=== PATIENT | female | born 1975 | race Caucasian/White ===

== ENCOUNTER 2022-07-31 07:22 | Inpatient (IN) | payer BC, SELFPAY ==
[2022-07-31] VITALS (56 sets, daily range): BP systolic 150–163; BP diastolic 78–88; PULSE 66–103; RESP 13–30; TEMP 36.9; O2SAT 92–97; BMI 37.8
--- NOTE | 2022-07-31 06:53 | P.HP_ITS ---
Providers/Chief Complaint Admitting Physician: Dalton Joyce Chief Complaint: NSTEMI History of Present Illness 46-year-old lady with history of smoking, HTN suboptimally controlled, blood pressure serially running in the 180s, history of CVA in 2018, overweight, with family history of coronary disease was transferred from [facility] where she was assessed after presenting with upper central chest discomfort, mild but persistent, accompanied by nausea and had an episode of vomiting, then pain started radiating to the jaw, left shoulder which made her concerned and seek evaluation. On presentation at [facility] very hypertensive, blood pressure 258/112. Initial troponin 0.589 (at their facility is 0.29), second troponin pending. Chest x-ray unremarkable. BNP 217. Heart rates reported in the 90s. Respiratory rate 18. Saturating 92% on room air. She received nitroglycerin paste, aspirin x4, started on heparin drip. Blood pressure subsequently decreased to 191/92, then now most recent 140/79. Cholesterol panel reported WNL. Currently she is chest pain-free. She has been taking ibuprofen due to L hip pain after she states she had recently dislocated it. Review of Systems Const: Denies: fever(s), chills, body aches or malaise Eyes: Denies: change in vision, eye discomfort or eye redness ENMT: Denies: throat pain, oral sores or ear or mastoid pain Card: Reports: chest pain; Denies: edema, pre-syncope or dyspnea on exertion Resp: Denies: dyspnea, productive cough, change in phlegm color or hemoptysis GI: Reports: nausea and vomiting; Denies: abdominal pain, diarrhea, constipation, hematochezia or melena : Denies: flank pain, urinary frequency or hematuria Musc: Reports: joint pain (L hip); Denies: back pain, joint swelling or joint redness Skin/Breast: Denies: rash or new lesions Neuro: Denies: headache(s), numbness in extremities, weakness in extremities, dizziness, confusion or seizure-like activity Endo: Denies: polyuria or polydipsia Lito/Lymph: Denies: easy bleeding or tender lymph nodes All/Imm: Denies: urticaria or tongue swelling Medications/Allergies Allergies Allergy/AdvReac Type Severity Reaction Status Date / Time Latex, Natural Rubber Allergy Unknown Unknown Unverified 07/31/22 07:03 NSAIDS (Non-Steroidal Allergy Unknown Unknown Unverified 07/31/22 07:03 Anti-Inflamma vitamin c Allergy Severe anaphalaxis Uncoded 07/31/22 07:11 PFSH Acute PFSH: Medical History (Updated 07/31/22 @ 07:18 by Dalton Joyce MD) CVA (cerebral vascular accident) Heat stroke Surgical History (Updated 07/31/22 @ 07:18 by Dalton Joyce MD) H/O knee surgery History of removal of ovarian cyst Family History (Updated 07/31/22 @ 07:05 by Dalton Joyce MD) Father CAD (coronary artery disease) Social History (Updated 07/31/22 @ 07:13 by Dalton Joyce MD) Smoking and tobacco status: current every day smoker cigarettes Packs smoked per day: 0.5 Alcohol intake: current Alcohol intake frequency: holidays/special occasions only Substance/Drug Use: never Marital status: Current occupational status: employed Physical Exam Const: COMMON NORMALS: patient oriented x3 and alert GENERAL APPEARANCE: cooperative NUTRITIONAL APPEARANCE: overweight ORIENTATION/CONSCIOUSNESS: Yes awake HENMT: COMMON NORMALS: oropharynx normal Neck/C-Spine: COMMON NORMALS: no JVD Resp: COMMON NORMALS: normal respiratory effort and clear to auscultation bilaterally AUSCULTATION: clear to auscultation bilaterally Cardio: COMMON NORMALS: no JVD, regular rhythm, S1 normal heart sound present, S2 normal heart sound present and No murmurs present (Cardio) RHYTHM: regular rhythm HEART SOUNDS: S1 normal heart sound present and S2 normal heart sound present GI: COMMON NORMALS: Normal to inspection, nondistended, normoactive bowel sounds present, Soft to palpation and non-tender PALPATION: Yes Soft to palpation Extremity: COMMON NORMALS: no joint enlargement and no pedal edema Neuro: COMMON NORMALS: patient oriented x3 and moves all extremities SENSORIUM/ORIENTATION: Yes alert Skin: COMMON NORMALS: no rashes or lesions noted GENERAL SKIN EXAM: no rashes or lesions noted A&P Assessment and plan (1) NSTEMI (non-ST elevated myocardial infarction): Concern for NSTEMI with chest pain, troponin abnormality, risk factors of CAD with smoking, hypertension, obesity, family history of CAD. Elevated heart score. Received aspirin, continue. Continue heparin drip. Beta-abdullahi. Statin. Assess TTE. Monitor on telemetry. Cardiology consultation. Lipid profile reported WNL. Avoid NSAIDs. Check D-dimer. (2) Hypertensive urgency: On arrival to [facility] blood pressure very elevated, 258/112. Responded well to nitroglycerin blood pressure came down as low as 140/79. Start beta-abdullahi as above. Cardiac diet. Monitor blood pressures. (3) Smoking addiction: Discussed smoking cessation with her for 4 minutes. She realizes she needs to quit. She is smoking less than half pack per day. Will provide nicotine patch, lozenges as needed for cravings. (4) Nausea and vomiting: Had an episode of nausea and vomiting, concern for possible relation to NSTEMI. However, she has also been taking ibuprofen due to she states recent dislocation of her left hip. Possible gastritis, PUD. Start PPI. With smoking history in case of persistent dyspepsia consider referral for assessment by EGD once she is out of acute illness. Plan History of CVA, residual numbness in fingertips of the right hand. Attestations Medical Necessity Statement*: Admission of over 2 midnights anticipated versus management of NSTEMI, optimization of blood pressure after hypertensive urgency. 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
--- NOTE | 2022-07-31 07:04 | USCV_ITS ---
Cara Pandey Age: 46 Gender: F : 1975 Exam Date: 07/31/2022 07:38 Ordering Phys: Dalton Joyce MD Technologist: JESSICA Exam Location: [facility] [place] Indication: NSTEMI BP: 150 / 78 HR: 99 Rhythm: Sinus Technical Quality: Adequate MEASUREMENTS (Male / Female) Normal Values 2D ECHO LVOT Diameter 2.0 cm LV Ejection Fraction MOD 2C 65.3 % LV Ejection Fraction 2C AL 65.1 % LA Diameter 3.7 cm LA Width 2.4 cm LA Height 4.8 cm RA Width 3.1 cm RA Height 4.2 cm Aorta at Sinotubular Diameter 1.9 cm M-MODE Aortic Annulus Diameter 2.7 cm LA Ao Ratio MM 1.3 MV E Point Septal Separation 0.4 cm DOPPLER AV Peak Velocity 190.3 cm/s LVOT Peak Velocity 134.0 cm/s AV Area Cont Eq vti 3.0 cm squared AV Area Cont Eq pk 2.3 cm squared MV Peak Velocity 134.0 cm/s MV Area PHT 2.7 cm squared Mitral E to A Ratio 0.9 MV E' Velocity 51.5 cm/s Mitral E to MV E' Ratio 7.1 Mitral E to LV E' Lateral Ratio 6.7 Mitral E to LV E' Septal Ratio 7.6 TR Peak Velocity 190.6 cm/s TR Peak Gradient 14.5 mmHg TR Mean Velocity 128.6 cm/s TR Mean Gradient 8.2 mmHg TR Velocity Time Integral 35.4 cm TV Peak E Velocity 71.0 cm/s Right Atrial Pressure 8.0 mmHg Pulmonary Artery Systolic Pressu 22.5 mmHg PV Peak Velocity 139.0 cm/s RV Acceleration Time 0.1 s RV Ejection Time 0.3 s RV AcT/ET 0.5 FINDINGS Left Ventricle Normal left ventricular size and systolic function, EF 66 %. No regional wall motion abnormalities. Mild left ventricular hypertrophy. Right Ventricle The right ventricle is normal in size and function. Right Atrium The right atrium is normal in size. Left Atrium The left atrium is normal in size. Mitral Valve Mild mitral annular calcification. Aortic Valve No gross abnormalities noted Tricuspid Valve No gross abnormalities noted.trace tricuspid valve regurgitation. Pulmonic Valve Pulmonic valve not well visualized. Pericardium No pericardial effusion. Aorta Normal aortic annulus size. IVC Inferior vena cava not visualized. CONCLUSIONS Normal left ventricular size and systolic function, EF 66 %. No regional wall motion abnormalities. Mild left ventricular hypertrophy. (Echo contrast - Optison was used to delineate the endocardium and to estimate the LV ejection fraction) Mild mitral annular calcification. Trace tricuspid valve regurgitation. Estimated pulmonary artery peak systolic pressure 22 mmHg There is no pericardial effusion. There are no intracardiac masses. No similar previous studies are available for comparison Dr Monalisa Abdul MD [facility] (Electronically Signed) Final Date: 31 July 2022 11:39 S
[2022-07-31 07:46] LABS: Partial Thromboplastin Time 44.1 SECONDS (23.9-36.7)
[2022-07-31 07:48] LABS: D Dimer 0.45 ug/mIFEU (0-0.59)
[2022-07-31] MEDS: perflutren protein-a microsphr 0.22 mg/mL SDV 3 mL IV (08:13)
[2022-07-31 08:19] LABS: Troponin T (5th) Once 211 ng/L (0-10)
[2022-07-31] MEDS: pantoprazole DR 40 mg Tablet PO (08:24)
[2022-07-31] MEDS: aspirin 325 mg Tablet PO (08:24)
[2022-07-31] MEDS: metoprolol tartrate 25 mg Tablet PO ×2 (08:24→20:58)
[2022-07-31 10:03] LABS: Troponin T (5th) Once 261 ng/L (0-10)
--- NOTE | 2022-07-31 10:07 | ECG_ITS ---
[facility] Test Date: 2022-07-31 Pat Name: Cara Pandey Department: Room: 103 Gender: Female Intelligence Manager: : 1975 Requested By: Adarsh Tracy Order Number: [id number] Lacho MD: Monalisa Abdul M.D. Measurements Intervals Sasser Rate: 75 P: 61 WY: 166 QRS: 23 QRSD: 90 T: 66 QT: 386 QTc: 432 Interpretive Statements SINUS RHYTHM No previous ECG available for comparison Electronically Signed On 08-01-2022 15:23:20 UNIONMELT OPERATOR by Monalisa Abdul M.D. [id number]
--- NOTE | 2022-07-31 10:34 | W.PM.EVENTAC ---
Event Note Event Note: Saw patient briefly, reviewed history and physical. Troponin significantly elevated. Awaiting EKG. Patient reports no chest discomfort whatsoever. Agree with plan as outlined by Dr. Joyce.
--- NOTE | 2022-07-31 10:43 | PM.CONSULT ---
Providers/Reason For Consult Consulting Physician/Specialty*: Beatrice Abdul MD/cardiology Reason for Consult*: Patient with chest pain and elevated troponin T Requesting Physician: Dr. Joyce/Nidhi Attending Physician: Adarsh Terrell MD History of Present Illness History of Present Illness Cara Pandey is a 46 year old female, transferred to our facility from [facility] where she presented with accelerated hypertension and chest pain with nausea and vomiting This patient apparently has been in her baseline state of health up until 5:00 yesterday evening when she started having gas-like pain in the mid substernal regions. Occasionally it will study to the neck. She had a several of these episodes throughout the night. Because of this, she was finding difficulty going to bed. Around 1:00 in the morning, she started vomiting. She had 1 bout of vomiting. Following which, she had some relief for a short period. Few minutes later, she started having the gas-like pain and belching. For these reasons, she was seen at the [facility]. Her gas pains gradually subsided. She had some severe headache at that time. Her troponin levels came back elevated. For that reason, she was transferred to our hospital. The intensity of her pain very mild to moderate. Even though she had gas pains before she she almost always had a pain in the abdomen. According to her, this is the first time that she is having pain in the chest . She has no previous history for coronary disease, myocardial infarction or congestive heart failure. She was diagnosed with CVA in 2018. She was told to have a heat stroke which later on evolved into a complete stroke? She was found to have elevated blood pressure at that time. She may try taking the blood pressure medications for 3 months or so. She stopped taking the medicine since she could not afford to see a doctor. She apparently has not been taking the medication since then. She has no history for any diabetes or dyslipidemia. No history for kidney disease, liver disease or bleeding disorders. Her father had a myocardial infarction in his 30s. He later on of cancer. Details about her siblings are not known. Denies any smoking abuse, alcohol abuse or any other substance abuse. Review of Systems Narrative: CONSTITUTIONAL: No fever or chills. EYES: No blurring of vision or other visual disturbances lately. ENT: No hoarseness of voice, auditory disturbances or sore throat. CARDIOVASCULAR: As mentioned above. RESPIRATORY: No significant cough. GASTROINTESTINAL: No hematemesis or melena. GENITOURINARY: Had a cyst removal from the ovary INTEGUMENTARY: No skin rashes or history of skin cancer. NEURO: No transient ischemic attacks or amaurosis. PSYCHIATRIC: No history of psychosis or major depression. HEMATOLOGIC: No bleeding disorders or significant anemia. ENDOCRINE: No history of polyuria or polydipsia. MUSCULOSKELETAL: Had surgery to the left knee ALLERGY/IMMUNOLOGY: As mentioned above. Medications/Allergies Home Medications Medication Instructions Recorded Confirmed Last Taken Type aspirin 81 mg tablet,delayed 81 mg PO DAILY 07/31/22 07/31/22 Unknown History release ibuprofen 200 mg tablet (Advil) 400 mg PO Q6H PRN Pain 07/31/22 07/31/22 Unknown History multivit-iron 18 mg-folic acid 400 1 tab PO DAILY 07/31/22 07/31/22 Unknown History mcg-calcium 500 mg-minerals tablet (Women's Daily Formula) Allergies Allergy/AdvReac Type Severity Reaction Status Date / Time Latex, Natural Rubber Allergy Unknown Unknown Verified 07/31/22 07:37 NSAIDS (Non-Steroidal Allergy Unknown Unknown Verified 07/31/22 07:37 Anti-Inflamma vitamin c Allergy Severe anaphalaxis Uncoded 07/31/22 07:11 Current Medications Generic Name Dose Route Start Last Admin Trade Name Freq PRN Reason Stop Dose Admin Aspirin 325 mg 07/31/22 09:00 07/31/22 08:24 Aspirin 325 Mg Tablet PO 325 mg DAILY SOHEILA Administration Metoprolol Tartrate 25 mg 07/31/22 09:00 07/31/22 08:24 Metoprolol Tartrate 25 Mg Tablet PO 25 mg BID@0900,2100 SOHEILA Administration Nicotine 1 patch 07/31/22 09:00 07/31/22 07:22 Nicotine 14 Mg Patch TRANSDERMA Not Given DAILY SOHEILA Pantoprazole Sodium 40 mg 07/31/22 07:05 07/31/22 08:[address] 40 Mg Tablet PO 40 mg DAILY SOHEILA Administration PFSH Acute PFSH: Medical History CVA (cerebral vascular accident) Heat stroke Surgical History H/O knee surgery History of removal of ovarian cyst Family History Father CAD (coronary artery disease) Social History Smoking and tobacco status: current every day smoker cigarettes Packs smoked per day: 0.5 Alcohol intake: current Alcohol intake frequency: holidays/special occasions only Substance/Drug Use: never Marital status: Current occupational status: employed Vitals/I&O/Wt Last Vital Signs Pulse 86 07/31/22 09:00 Resp 16 07/31/22 09:00 BP 150/78 07/31/22 09:00 Pulse Ox 95 07/31/22 09:00 O2 Del Method 07/31/22 06:54 Weight last 48 hrs Weight 256 lb 2 oz Physical Exam Narrative: GENERAL: The patient is alert and oriented times three. Not in any acute distress. Moderately obese HEENT: No significant pallor, icterus or lymphadenopathy.Oral cavity: There are no mucous membrane lesions. NECK: Trachea appears to be central. No masses noted. No JVD or thyromegaly appreciated. RESPIRATORY: Chest is symmetrical. No intercostals muscle retraction or any accessory muscle activation. There is no chest wall tenderness. Breath sounds are heard bilaterally. No rales or rhonchi heard. No evidence of any consolidation. BREASTS: Deferred. HEART: The heart sounds are normal. No S3 or S4. No significant murmurs. No pericardial rub ABDOMEN: No vessel pulsations or distention. No tenderness. No organomegaly appreciated. Bowel sounds are normally heard. : Deferred. RECTAL: Deferred. LYMPHATIC: No lymphadenopathy noted in the neck. EXTREMITIES: No edema or cyanosis. No clubbing. MUSCULOSKELETAL: No acute joint deformities or swelling SKIN: There are no significant rashes or ecchymosis NEUROPSYCHIATRIC: The patient is alert and oriented x3. Appears to be in a good mood. No tremors or rigidity noted. Data : 08/01/22 04:34 08/01/22 04:34 Other Labs: Laboratory Last Values APTT 44.1 SECONDS (23.9-36.7) H 07/31/22 07:08 D-Dimer 0.45 ug/mIFEU (0-0.59) 07/31/22 07:08 Troponin T Gen 5 ng/L 261 ng/L (0-10) H* 07/31/22 09:30 Micro: Laboratory Last Values APTT 44.1 SECONDS (23.9-36.7) H 07/31/22 07:08 D-Dimer 0.45 ug/mIFEU (0-0.59) 07/31/22 07:08 Sodium 138 mmol/L (136-145) 07/31/22 09:30 Potassium 4.1 mmol/L (3.5-5.1) 07/31/22 09:30 Chloride 104 mmol/L (98-107) 07/31/22 09:30 Carbon Dioxide 23 mmol/L (22-29) 07/31/22 09:30 Anion Gap 15.1 (5-19) 07/31/22 09:30 BUN 8 mg/dL (6-20) 07/31/22 09:30 Creatinine 0.7 mg/dL (0.5-0.9) 07/31/22 09:30 GFR Calculation 90.1 mL/min (90-130) 07/31/22 09:30 Glucose 96 mg/dL (65-115) 07/31/22 09:30 Calculated Osmolality 284 mOsm/kg (285-295) L 07/31/22 09:30 Calcium 9.0 mg/dL (8.5-10.5) 07/31/22 09:30 Troponin T Gen 5 ng/L 261 ng/L (0-10) H* 07/31/22 09:30 Echo: My impression: Normal left ventricular size and systolic function, EF 66 %. No ?regional wall motion abnormalities. ?Mild left ventricular hypertrophy.? (Echo contrast - Optison was ?used to delineate the endocardium and to estimate the? LV ?ejection fraction) ?Mild mitral annular calcification. ?Trace tricuspid valve regurgitation. ?Estimated pulmonary artery peak systolic pressure 22 mmHg ?There is no pericardial effusion. ?There are no intracardiac masses. ?No similar previous studies are available for comparison EKG 1: Non Destructive Testing Scientist Interpretation: EKG showed a normal sinus rhythm with some nonspecific T wave changes in the high lateral leads. Otherwise unremarkable. A&P Assessment and plan (1) Chest pain: Patient chest pain is atypical. However the possibility of underlying coronary ischemia causing the syndrome is a strong consideration especially in view of the elevated troponin T and strong family history for premature atherosclerotic heart disease. At this point, her clinical features are consistent with a non-ST elevation myocardial infarction. She may be treated with subcu Lovenox, beta-abdullahi, aspirin and Plavix. Her EKG and echocardiogram are unremarkable. (2) Hypertensive urgency: Currently the blood pressures are stage II. Apparently the patient was extremely nervous and had a panic attack at the [facility]. That might be the reason for her markedly elevated blood pressure at that time. Her antihypertensive medications need to be optimized. (3) Nausea and vomiting: Most likely from the myocardial ischemia. Patient has no recurrence. (4) Dyslipidemia: May be started on Lipitor 40 mg p.o. 1 hour daily. (5) FH: premature coronary heart disease: Details of the other family members are not known. Father had myocardial infarction in his 30s. Plan We will optimize the antihypertensive medications. Based on the clinical progress, further recommendations will be made. We may go ahead and do a cardiac catheterization, to further evaluate her coronary status and decide on further management, possibly tomorrow. Thank you for the opportunity to eval this patient make these recommendations Consult Attestations Medical Necessity Statement: Patient requires continued hospital stay for close monitoring and further management Coding Level of Care Code Acute Senior Sales Operations Manager for Chg Fwd Diagnoses Chest pain R07.9 Hypertensive urgency I16.0 Nausea and vomiting R11.2 Dyslipidemia E78.5 FH: premature coronary heart disease Z82.49
[2022-07-31 10:55] LABS: Anion Gap 15.1 (5-19); Blood Urea Nitrogen 8 mg/dL (6-20); Carbon Dioxide 23 mmol/L (22-29); Chloride 104 mmol/L (98-107); Glomerular Filtration Rate 90.1 mL/min (90-130); Glucose 96 mg/dL (65-115); Osmolality Calculated 284 mOsm/kg (285-295); Potassium 4.1 mmol/L (3.5-5.1); Sodium 138 mmol/L (136-145)
--- NOTE | 2022-07-31 11:25 | PC.NURSE ---
received from [facility] at 0655 via ambulance.pt is alert and oriented x 4.sr on monitor.denies chest pain at present.oriented to room environment.instructed to notify staff for any cp,sob,n/v..or for any concerns at all.pt verb understanding of instructions
[2022-07-31] MEDS: enoxaparin 120 mg/0.8 mL Syringe SUBCUT ×2 (11:40→21:00)
[2022-07-31] MEDS: atorvastatin 40 mg Tablet PO (20:59)
[2022-07-31] MEDS: acetaminophen 325 mg Tablet 650 MG PO (22:01)
[2022-07-31] MEDS: HYDROcodone-acetaminophen 5-325 mg Tablet 1 TAB PO (22:26)
[2022-08-01] VITALS (83 sets, daily range): BP systolic 105–188; BP diastolic 59–103; PULSE 62–89; RESP 11–28; TEMP 36.7–37.1; O2SAT 91–99
[2022-08-01] MEDS: HYDROcodone-acetaminophen 5-325 mg Tablet 1 TAB PO ×2 (05:23→11:11)
[2022-08-01 05:57] LABS: Basophils % 0.3 %; Eosinophils # 0.3 10^3/uL (0.0-0.8); Eosinophils % 2.7 %; Hematocrit 44.3 % (37.0-47.0); Hemoglobin 14.5 g/dL (11.5-15.3); Lymphocytes # 3.1 10^3/uL (0.8-4.8); Lymphocytes % 31.6 %; Mean Corpuscular HGB Conc 32.7 g/dL (30.0-36.0); Mean Corpuscular Hemoglobin 31.4 pg (28.0-34.0); Mean Corpuscular Volume 95.9 fl (81-99); Mean Platelet Volume 10.8 fL (7.4-10.4); Monocytes # 0.9 10^3/uL (0.2-0.9); Monocytes % 8.9 %; Neutrophils # 5.56 10^3/uL (1.8-7.7); Neutrophils % 56.3 %; Nucleated Red Blood Cells % 0 %; Platelet Count 221 10^3/cmm (130-400); Red Blood Count 4.62 10^6/uL (4.1-5.3); Red Cell Distribution Width 12.8 % (12.1-15.1); White Blood Count 9.9 10^3/uL (4.0-10.0)
[2022-08-01 06:17] LABS: Alanine Aminotransferase 26 U/L (0-33); Albumin Level 3.3 g/dL (3.5-5.2); Alkaline Phosphatase 83 U/L (35-105); Anion Gap 12.7 (5-19); Aspartate Amino Transferase 34 U/L (0-32); Blood Urea Nitrogen 12 mg/dL (6-20); Calcium 8.8 mg/dL (8.5-10.5); Carbon Dioxide 26 mmol/L (22-29); Chloride 102 mmol/L (98-107); Globulin 3.7 g/dL (1.3-4.6); Glomerular Filtration Rate 107.6 mL/min (90-130); Glucose 91 mg/dL (65-115); Osmolality Calculated 283 mOsm/kg (285-295); Potassium 3.7 mmol/L (3.5-5.1); Sodium 137 mmol/L (136-145); Total Bilirubin 0.4 mg/dL (0.15-1.2)
[2022-08-01] MEDS: diphenhydrAMINE 50 mg Capsule PO (08:01)
[2022-08-01] MEDS: sodium chloride 0.9% 1,000 ML 50 ML IV (08:02)
--- NOTE | 2022-08-01 08:30 | XACV_ITS ---
Exam Room: [facility] Ht: 175 cm Wt: 116 kg BSA: 2.43 m2 Gender: Female : 1975 Any Known Allergies: Other Exam Priority: Routine Procedure(s): Procedure Description: Diagnostic procedure Procedure Description: PCI procedure Procedure Description: Left Heart Catheterization Procedure Description: Drug Eluting Coronary Stent Procedure Description: Coronary Angiography Franko ARAUJO; Diagnostic Cath Status: Urgent Diagnostic Findings * The left main is a medium caliber vessel with no significant stenotic lesions. * The left anterior descending artery is a medium caliber vessel which appears to wrap around the LV apex. The proximal left anterior descending artery was found to have mild diffuse intimal irregularities. The distal LAD also was found to have minimal intimal irregularities. No significant stenotic lesions were noted. There is a high diagonal branch of relatively small caliber. This artery was found to have mild diffuse disease proximally.. * The intermedius artery is a relatively small caliber vessel which also was found to have mild diffuse intimal irregularities proximally. * The left circumflex artery is a medium caliber vessel which was found to have a high-grade lesion of 95% at the distal segment, after giving off two small obtuse marginal branches. The third obtuse marginal branch is a medium caliber vessel which was found to have around 40% tubular lesion proximally. * The right coronary artery is a medium caliber dominant vessel which also was found to have mild diffuse disease in the proximal and distal segments. The PDA and the PLV branches also were found to have minimal intimal irregularities. PCI Status: Urgent PCI LVEF Assessed: No PCI Indication: NSTE - ACS Interventional Findings * Mid circumflex lesion was primarily stented with a 3.5 x 12 mm stent. Some second obtuse marginal just beyond the stent but there was good flow there. Otherwise, good angiographic result. Decision for PCI with Surgical Consult: No PCI for Multi-vessel Disease: No Conclusions 1. This is a 46-year-old white female with multiple risk factors for coronary artery disease presenting with unstable anginal symptoms and clinical features of a non-ST elevation myocardial infarction. Her EKG showed some nonspecific T wave changes in the high lateral leads. The echocardiogram was essentially unremarkable. In view of her presenting symptoms and the abnormal objective findings, in order to further evaluate the coronary status, a cardiac catheterization was recommended. Patient underwent left heart catheterization with left and right coronary angiogram today. The findings are as follows. 2. High-grade lesion in the distal circumflex artery of around 95%. Mild diffuse disease in the other vessels. LVEDP 25 mmHg. 3. Based on the angiogram findings, it was thought to be appropriate to consider PCI of the circumflex artery lesion. I reviewed and discussed the cardiac catheterization data with the Dr. Camargo. Dr. Camargo concurred with this plan and took over further management of this patient at this point. Further details of the PCI, please refer to the report by Dr. Camargo. Interventional RX Recommendation: PCI w/o planned CABG Diagnostic RX Recommendation: PCI w/o planned CABG LV EDP: 25 mmHg Left Ventriculography Findings: * The LV gram was not performed because of the limitations on the dye usage. The LVEDP was 25 mmHg. Pressures Phase:Rest AO : 108 / 67 ( 82 ) @ 8:46:00 AM / ( -1 ) @ 8:56:00 AM 169 / 84 ( 117 ) @ 8:58:00 AM 165 / 85 ( 112 ) @ 8:59:00 AM 188 / 79 ( 116 ) @ 9:05:00 AM 117 / 26 ( 51 ) @ 9:10:00 AM LV : 155 / 0 / 22 @ 8:58:00 AM 154 / 2 / 25 @ 8:58:00 AM Valves Phase:DefaultPhase AV : 0.0 @ 9:33:04 AM AV Mean Gradient: 0.0 @ 9:33:04 AM Clinical Evaluation EBL: 5mL-10mL Procedural Details Procedure Consent Obtained. Pre-Procedure Time Out. Identified patient by full name and date of as verbalized by the patient/guarantor. Does the consent match the physician's order: Yes. Accurate & Complete Informed Consent: Yes. Inpatient/Outpatient History & Physical on Chart: Yes. If H&P is completed, is and addenduem needed: Yes; If yes, is the addendum complete: Yes. Visualize and Verify Site with Patient/Guarantor: N/A. Relevant Radiology Images available: Yes. The risks, benefits, and alternatives of sedation and/or procedure were discussed by physician. The patient agrees to continue. Procedure started. [facility] Clinical Fraility Score: 3: Managing Well. Virtual Office Assistant Indications: ACS > 24 hours. Chest Pain Symptom Assessment: Typical Angina Symptoms. Cardiovascular Instability: No. Current diagnosis: NSTEMI. PERRLA. Strong, equal hand ball points inspector bilaterally. Lungs clear x 5 lobes. IV Site on Arrival: 20 gauge in the right anticubital. IV Fluids: 0.9% NaCl at KVO. 50 mL infused prior to open hearth laborer. Pre Procedural Pulses: bilateral radial was 3+. Oxygen started at 2liters/min via nasal canula. right groin was prepped with chloroprep then draped in the usual sterile fashion. right radial was prepped with chloroprep then draped in the usual sterile fashion. Physician notified. Baseline sample Acquired. HR: 83 BPM. Patient's family unavailable. She stated that she would call her spouse after she got back to her room. Equipment: 6F - Radial. Cardiac Cath Pack. ACIST Manifold Kit Model BT 2000. Heparinized Saline (2 units/mL), 1000 mL bag. Physician arrived. Physician scrubbed in. Immediate Pre-Procedure Time Out. Correct Patient: Yes; Correct Procedure: Yes; Correct Site: Yes; Correct Patient Position: Yes; Correct Supplies: Yes; Dried Flammable Prep: Yes; Blood Products Available: N/A;. Lidocaine 1% infiltrated to the right radial. Arterial access obtained. A 6 zimbabwean Je catheter in over the exchange J wire. Multiple views taken of left coronary artery. Catheter removed over the exchange J wire. A 5 zimbabwean JR4 catheter in over the exchange J wire. Multiple views taken of right coronary artery. Patient went into VFib. Shocked x 2. Back into SR. Catheter removed over the exchange J wire. A 5 zimbabwean Angled Pig catheter in over the exchange J wire. EDP Sample taken: LV 155/0,22; HR: 74 BPM; SpO2: 94%. Pullback taken: LV 154/2,25; AO 169/84(117); Mean: 0mmHg, Peak to Peak: 0mmHg, SEP: 6sec/min; HR: 80 BPM; SpO2: 94%. Catheter removed over the exchange wire. Dr. Abdul scrubbed out, Dr. Camargo in to perform intervention. 6 zimbabwean XB 3 guide catheter was inserted over the wire. [place] guidewire was advanced through the guide catheter to lesion in the mid Circ. Inflation Number : 1 A KRISTI Whatley ABBY 3.5X12 BILL -Lot Number# [id number] was prepped and advanced across the Mid LAD. The stent was deployed at 12 MASSIEL for 0:39 seconds. Exp. . Stent balloon and wire out. Guide catheter out. Dr. Camargo scrubbed out. A TR Band was successful obtaining hemostatsis at the Right Radial artery insertion site. TR band placed. Hemostasis obtained. Post Procedure: Pulses reassessed and unchanged. PERRLA. Strong, equal hand ball points inspector bilaterally. No VTE prophylaxis required. PCI Indication: NSTE. Post-op diagnosis: PCI of the Mid CX. VFib s/p defib x 2. Complications: none. Medication's Wasted: Lidocaine 1% = 1 mL. Medication's Wasted: Nitro = 49.8 mg. Medication's Wasted: Heparin = 1000 units. Medication's Wasted: Other = Fentanyl 75 mcg. Medication's Wasted: Other = Versed 1 mg. Total IV fluids: 80 mL. Estimated blood loss: 5mL-10mL. Responsiveness - Normal response to verbal stimuli; alert and oriented, PERRLA. Airway - Unaffected, no intervention required; spontaneous ventilation. Circulation: W/N/L, pulses unchanged. Nausea/Vomiting: No. Procedure completed. Patient transferred by bed to 1st floor. Vital chart was stopped. Access Site Site: Right Radial artery Sheath Size: 6 Fr Hemostasis Method: TR Band Hemostasis Success: Successful Procedure Medications Start: 8:25 AM Stop: 8:25 AM Medication: Fentanyl Amount: 50 mcg Route: I.V. Start: 8:35 AM Stop: 8:35 AM Medication: Versed Amount: 1 mg Route: I.V. Start: 8:35 AM Stop: 8:35 AM Medication: Fentanyl Amount: 50 mcg Route: I.V. Start: 8:44 AM Stop: 8:44 AM Medication: Nitrogylcerin Amount: 200 mcg Route: I.A. Start: 8:44 AM Stop: 8:44 AM Medication: Verapamil Amount: 5 mg Route: I.A. Start: 8:49 AM Stop: 8:49 AM Medication: Versed Amount: 1 mg Route: I.V. Start: 8:49 AM Stop: 8:49 AM Medication: Heparin Amount: 5000 units Route: I.V. Start: 9:17 AM Stop: 9:17 AM Medication: Versed Amount: 1 mg Route: I.V. Start: 9:17 AM Stop: 9:17 AM Medication: Fentanyl Amount: 25 mcg Route: I.V. Start: 9:29 AM Stop: 9:29 AM Medication: Plavix Amount: 600 mg Route: P.O. I, the attending physician, have reviewed and verified all procedure medications. Yes, all medications given per verbal order History/Risk Factors Hypertension: Yes Dyslipidemia: Yes Peripheral Arterial Disease (PAD): No Myocardial Infarction (AR): No Obesity: No Renal Disease: No Tobacco Use: Current/Recent(w/in 1 year) Prior Interventions PCI: No CABG: No Valve Surgery: No Report Signatures Diagnostic Workflow Finalized by Dr Monalisa Abdul MD [facility] on 08/02/2022 09:41 AM Interventional Workflow Finalized by Dr. William Camargo MD on 08/01/2022 09:36 AM
--- NOTE | 2022-08-01 08:35 | P.HPUD_ITS ---
Surgery/Procedure H&P Update DATE OF PROCEDURE: August 01, 2022 DATE H&P PERFORMED: 07/31/22 H&P UPDATE INFORMATION: I have reviewed H&P completed within last 30 days, I have examined patient prior to procedure and No changes to prior documentation PREOP DIAGNOSIS: NSTEMI PRIMARY INDICATION FOR PROCEDURE: UAP/NSTEMI PLANNED PROCEDURE: [facility] with coronary angio and posssible PCI PATIENT REASSESSED PRIOR TO SEDATION, WITH NO CHANGE NOTED: Yes PHYSICAL EXAM: alert, oriented x 3, clear to auscultation bilaterally and regular rate & rhythm AIRWAY EVAL/ANESTHESIA PLAN: normal airway, see other exam findings, ASA III, Monitored Anesthesia, Risks, benefits & alternatives of sedation and/or procedure discussed and Patient agrees to continue as planned
--- NOTE | 2022-08-01 09:16 | P.PN_ITS ---
Subjective Subjective: Patient remained stable through the night. She did not have any chest pain. Her troponin T was found to be elevated at 265. No new symptoms. Her blood pressure came down to 105 and now it is in the 150, systolic. Medications: Medication Review Details: Home Medications aspirin 81 mg tablet,delayed release 81 mg PO DAILY 07/31/22 [History Confirmed 07/31/22] ibuprofen 200 mg tablet (Advil) 400 mg PO Q6H PRN Pain 07/31/22 [History Confirmed 07/31/22] multivit-iron 18 mg-folic acid 400 mcg-calcium 500 mg-minerals tablet (Women's Daily Formula) 1 tab PO DAILY 07/31/22 [History Confirmed 07/31/22] Active Medications Acetaminophen (Acetaminophen 325 Mg Tablet) 650 mg PO Q6H PRN PRN Reason: Mild/Mod Pain Or Temp >/= 101 Last Admin: 07/31/22 22:01 Dose: 650 mg Hydrocodone Bitart/Acetaminophen (Hydrocodone-Acetaminophen 5-325 Mg Tablet) 1 tab PO Q4H PRN PRN Reason: MODERATE PAIN Last Admin: 08/01/22 05:23 Dose: 1 tab Aspirin (Aspirin 325 Mg Tablet) 325 mg PO DAILY [facility] Last Admin: 07/31/22 08:24 Dose: 325 mg Atorvastatin Calcium (Atorvastatin 40 Mg Tablet) 40 mg PO BEDTIME [facility] Last Admin: 07/31/22 20:59 Dose: 40 mg Enoxaparin Sodium (Enoxaparin 120 Mg/0.8 Ml Syringe) 120 mg SUBCUT Q12H [facility] Last Admin: 07/31/22 21:00 Dose: 120 mg Sodium Chloride (Sodium Chloride 0.9%) 1,000 mls @ 50 mls/hr IV .Q20H [facility] Last Admin: 08/01/22 08:02 Dose: 50 mls/hr Lidocaine (Lidocaine 5% Patch) 1 patch TOPICAL [id number] [facility] Metoprolol Tartrate (Metoprolol Tartrate 25 Mg Tablet) 25 mg PO BID@0900,2100 [facility] Last Admin: 07/31/22 20:58 Dose: 25 mg Nicotine (Nicotine 14 Mg Patch) 1 patch TRANSDERMA DAILY [facility] Last Admin: 07/31/22 07:22 Dose: Not Given Nicotine Polacrilex (Nicotine 4 Mg Lozenge) 4 mg MUCOUS MEM Q2H PRN PRN Reason: NICOTINE CRAVINGS Ondansetron HCl (Ondansetron 2 Mg/Ml Sdv 2 Ml) 4 mg IVP Q8H PRN PRN Reason: vomiting, or N/V if npo Pantoprazole Sodium (Pantoprazole Dr 40 Mg Tablet) 40 mg PO DAILY [facility] Last Admin: 07/31/22 08:24 Dose: 40 mg Vitals/I&O/Wt Last Vital Signs Temp 98.0 F 08/01/22 04:25 Pulse 73 08/01/22 05:43 Resp 14 08/01/22 04:25 BP 158/82 08/01/22 04:25 Pulse Ox 94 08/01/22 04:25 O2 Del Method 07/31/22 16:00 07/31/22 08/01/22 08/01/22 22:59 06:59 14:59 Intake Total 740 / 1100 Balance 740 / 1100 Weight last 48 hrs Weight 256 lb 2 oz Physical Exam Narrative: GENERAL: The patient is alert and oriented times three. Not in any acute distress. Moderately obese HEENT: No significant pallor, icterus or lymphadenopathy.Oral cavity: There are no mucous membrane lesions. NECK: Trachea appears to be central. No masses noted. No JVD or thyromegaly appreciated. RESPIRATORY: Chest is symmetrical. No intercostals muscle retraction or any accessory muscle activation. There is no chest wall tenderness. Breath sounds are heard bilaterally. No rales or rhonchi heard. No evidence of any consolidation. BREASTS: Deferred. HEART: The heart sounds are normal. No S3 or S4. No significant murmurs. No pericardial rub ABDOMEN: No vessel pulsations or distention. No tenderness. No organomegaly appreciated. Bowel sounds are normally heard. : Deferred. RECTAL: Deferred. LYMPHATIC: No lymphadenopathy noted in the neck. EXTREMITIES: No edema or cyanosis. No clubbing. MUSCULOSKELETAL: No acute joint deformities or swelling SKIN: There are no significant rashes or ecchymosis NEUROPSYCHIATRIC: The patient is alert and oriented x3. Appears to be in a good mood. No tremors or rigidity noted. Data : 08/01/22 04:34 08/01/22 04:34 Other Labs: Laboratory Last Values WBC 9.9 10^3/uL (4.0-10.0) 08/01/22 04:34 RBC 4.62 10^6/uL (4.1-5.3) 08/01/22 04:34 Hgb 14.5 g/dL (11.5-15.3) 08/01/22 04:34 Hct 44.3 % (37.0-47.0) 08/01/22 04:34 MCV 95.9 fl (81-99) 08/01/22 04:34 MCH 31.4 pg (28.0-34.0) 08/01/22 04:34 MCHC 32.7 g/dL (30.0-36.0) 08/01/22 04:34 RDW 12.8 % (12.1-15.1) 08/01/22 04:34 Plt Count 221 10^3/cmm (130-400) 08/01/22 04:34 MPV 10.8 fL (7.4-10.4) H 08/01/22 04:34 Neut % (Auto) 56.3 % 08/01/22 04:34 Lymph % (Auto) 31.6 % 08/01/22 04:34 Gentry % (Auto) 8.9 % 08/01/22 04:34 Eos % (Auto) 2.7 % 08/01/22 04:34 Baso % (Auto) 0.3 % 08/01/22 04:34 Neut # (Auto) 5.56 10^3/uL (1.8-7.7) 08/01/22 04:34 Lymph # (Auto) 3.1 10^3/uL (0.8-4.8) 08/01/22 04:34 Gentry # (Auto) 0.9 10^3/uL (0.2-0.9) 08/01/22 04:34 Eos # (Auto) 0.3 10^3/uL (0.0-0.8) 08/01/22 04:34 Baso # (Auto) 0.0 10^3/uL (0.0-0.1) 08/01/22 04:34 Nucleated RBC % (auto) 0 % 08/01/22 04:34 Nucleated RBCs # 0.0 /100WBC 08/01/22 04:34 APTT 44.1 SECONDS (23.9-36.7) H 07/31/22 07:08 D-Dimer 0.45 ug/mIFEU (0-0.59) 07/31/22 07:08 Sodium 137 mmol/L (136-145) 08/01/22 04:34 Potassium 3.7 mmol/L (3.5-5.1) 08/01/22 04:34 Chloride 102 mmol/L (98-107) 08/01/22 04:34 Carbon Dioxide 26 mmol/L (22-29) 08/01/22 04:34 Anion Gap 12.7 (5-19) 08/01/22 04:34 BUN 12 mg/dL (6-20) 08/01/22 04:34 Creatinine 0.6 mg/dL (0.5-0.9) 08/01/22 04:34 GFR Calculation 107.6 mL/min (90-130) 08/01/22 04:34 Glucose 91 mg/dL (65-115) 08/01/22 04:34 Calculated Osmolality 283 mOsm/kg (285-295) L 08/01/22 04:34 Calcium 8.8 mg/dL (8.5-10.5) 08/01/22 04:34 Total Bilirubin 0.4 mg/dL (0.15-1.2) 08/01/22 04:34 AST 34 U/L (0-32) H 08/01/22 04:34 ALT 26 U/L (0-33) 08/01/22 04:34 Alkaline Phosphatase 83 U/L (35-105) 08/01/22 04:34 Troponin T Gen 5 ng/L 261 ng/L (0-10) H* 07/31/22 09:30 Total Protein 7.0 g/dL (6.6-8.7) 08/01/22 04:34 Albumin 3.3 g/dL (3.5-5.2) L 08/01/22 04:34 Globulin 3.7 g/dL (1.3-4.6) 08/01/22 04:34 A&P Assessment and plan (1) Chest pain: Patient's clinical features are consistent with a non-ST elevation myocardial infarction. We will continue on the current medications including the Plavix. Patient requires a cardiac catheterization, to further evaluate her coronary status and decide on further management. The risk of bleeding, hematoma, vascular injury, myocardial infarction, myocardial perforation, malignant cardiac arrhythmias ,CVA, renal failure and other concomitant complications were explained in detail. Patient understood this well and consented to proceed (2) Hypertensive urgency: Currently the blood pressures are stage II. Apparently the patient was extremely nervous and had a panic attack at the [facility]. That might be the reason for her markedly elevated blood pressure at that time. Her antihypertensive medications need to be optimized. (3) Nausea and vomiting: Most likely from the myocardial ischemia. Patient has no recurrence. (4) Dyslipidemia: We will do a lipid panel on the blood in the lab. Based on the levels, the dose of Lipitor will be adjusted. (5) FH: premature coronary heart disease: Details of the other family members are not known. Father had myocardial infarction in his 30s. Plan Patient is scheduled for the cardiac catheterization this morning. Based on the angiogram findings, further management decisions will be made. She may be continued on the current medications for the time being. Attestations Medical Necessity Statement*: Patient requires continued hospital stay for close monitoring and further management Coding Level of Care Code Acute Sample Grader for Chg Fwd History Expanded Problem Focused Exam Detailed Medical Decision Making Moderate Complexity Diagnoses Chest pain R07.9 Hypertensive urgency I16.0 Nausea and vomiting R11.2 Dyslipidemia E78.5 FH: premature coronary heart disease Z82.49
--- NOTE | 2022-08-01 09:39 | P.PN_ITS ---
Subjective Subjective: Plan for angiogram today Patient will go for coronary artery stent as per Dr. Abdul significant stenosis found during diagnostic coronary angiogram Patient remained chest pain-free She is still hypertensive She is allergic to latex, vitamin C and NSAIDs No allergies to lisinopril or amlodipine Vitals/I&O/Wt Last Vital Signs Temp 98.0 F 08/01/22 04:25 Pulse 73 08/01/22 05:43 Resp 14 08/01/22 04:25 BP 158/82 08/01/22 04:25 Pulse Ox 94 08/01/22 04:25 O2 Del Method 07/31/22 16:00 07/31/22 08/01/22 08/01/22 22:59 06:59 14:59 Intake Total 740 / 1100 Balance 740 / 1100 Weight last 48 hrs Weight 116.176 kg Physical Exam Narrative: S1, S2 Hypertensive Currently on room air Awake and alert Nonfocal neuro exam Abdomen soft No signs of edema Data : 08/01/22 04:34 08/01/22 04:34 A&P Assessment and plan (1) Dyslipidemia: (2) Chest pain: (3) Nausea and vomiting: (4) NSTEMI (non-ST elevated myocardial infarction): (5) Hypertensive urgency: (6) Smoking addiction: Plan NSTEMI Diagnostic coronary angiogram did show coronary artery disease Status post stent placement Continue aspirin, Plavix high-dose statin We will follow-up with cardiology recommendations Hypertensive urgency added amlodipine and lisinopril Continue metoprolol as well She might need a diuretic regimen as well Smoking cessation counseling Avoid NSAIDs No active vomiting Outpatient EGD for dyspepsia I have asked patient not to take ibuprofen for hip pain instead takes Tylenol I will add Lyrica for her sciatica Attestations Medical Necessity Statement*: Continue medical management Time Spent in Patient Care: 30 Coding Level of Care Code 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
[2022-08-01] MEDS: sodium chloride 0.9% 1,000 ML 100 ML IV ×2 (09:40→20:23)
[2022-08-01 09:54] LABS: Chol HDL Ratio 4.11 mg/dL (0.0-4.40); Cholesterol 156 mg/dL (0-200); HDL Cholesterol 38 mg/dL (60-100); LDL Cholesterol Calculated 94 mg/dL (50-129); LDL HDL Ratio 2.47 RATIO (0.00-3.22); Triglycerides 119 mg/dL (0-150)
[2022-08-01] MEDS: metoprolol tartrate 25 mg Tablet PO ×2 (11:10→20:22)
[2022-08-01] MEDS: lidocaine 5% Patch 1 PATCH TOPICAL (11:11)
[2022-08-01] MEDS: pantoprazole DR 40 mg Tablet PO (11:11)
[2022-08-01] MEDS: lisinopril 20 mg Tablet PO (11:11)
--- NOTE | 2022-08-01 15:52 | PC.NURSE ---
to cardiac director of cardiac cath lab at 0815 via bed.return from cardiac director of cardiac cath lab via bed at 0940.report received.pt is drowsy,but oriented x 4.denies pain at present.sr on monitor.right radial tr band on and inflated.no hematoma noted.right hand warm to touch and with brisk capillary refill.palpable radial pulse noted distal to tr band.pt instructed in activity restrictions s/p radial artery procedure...and instructed to notify staff for any bleeding,pain,numbness,or for any concerns at all.pt verb understanding.
--- NOTE | 2022-08-01 16:18 | PC.NURSE ---
tr band gradually deflated and finally removed at 1450.no hematoma noted.right hand remains warm to touch and with brisk capillary refill.palpable radial pulse noted.no hematoma noted.site dressed with 2x2 gauze and secured with biocclusive drsg.pt instructed in activity restrictions s/p tr band removal...and instructed to notify staff for any bleeding,pain,numbness..or for any concerns at all.pt verb understanding of instructions.
[2022-08-01] MEDS: gabapentin 100 mg Capsule PO (18:20)
[2022-08-01] MEDS: atorvastatin 40 mg Tablet PO (20:22)
[2022-08-02 04:00] VITALS: BP 139/77; PULSE 82; RESP 17; TEMP 36.8; O2SAT 94
[2022-08-02 05:04] LABS: Basophils % 0.3 %; Eosinophils # 0.2 10^3/uL (0.0-0.8); Eosinophils % 1.9 %; Hematocrit 45.1 % (37.0-47.0); Hemoglobin 14.6 g/dL (11.5-15.3); Lymphocytes # 2.5 10^3/uL (0.8-4.8); Lymphocytes % 22.8 %; Mean Corpuscular HGB Conc 32.4 g/dL (30.0-36.0); Mean Corpuscular Hemoglobin 31.3 pg (28.0-34.0); Mean Corpuscular Volume 96.8 fl (81-99); Mean Platelet Volume 10.3 fL (7.4-10.4); Monocytes # 0.9 10^3/uL (0.2-0.9); Monocytes % 8.2 %; Neutrophils # 7.37 10^3/uL (1.8-7.7); Neutrophils % 66.5 %; Nucleated Red Blood Cells % 0 %; Platelet Count 232 10^3/cmm (130-400); Red Blood Count 4.66 10^6/uL (4.1-5.3); Red Cell Distribution Width 12.8 % (12.1-15.1); White Blood Count 11.1 10^3/uL (4.0-10.0)
[2022-08-02 05:11] VITALS: PULSE 73
[2022-08-02 05:27] LABS: Alanine Aminotransferase 26 U/L (0-33); Albumin Level 3.4 g/dL (3.5-5.2); Alkaline Phosphatase 78 U/L (35-105); Anion Gap 10.6 (5-19); Aspartate Amino Transferase 38 U/L (0-32); Blood Urea Nitrogen 9 mg/dL (6-20); Calcium 8.6 mg/dL (8.5-10.5); Carbon Dioxide 25 mmol/L (22-29); Chloride 98 mmol/L (98-107); Globulin 3.7 g/dL (1.3-4.6); Glomerular Filtration Rate 107.6 mL/min (90-130); Glucose 86 mg/dL (65-115); Osmolality Calculated 268 mOsm/kg (285-295); Potassium 3.6 mmol/L (3.5-5.1); Sodium 130 mmol/L (136-145); Total Bilirubin 0.7 mg/dL (0.15-1.2); Total Protein 7.1 g/dL (6.6-8.7)
[2022-08-02] MEDS: HYDROcodone-acetaminophen 5-325 mg Tablet 1 TAB PO (06:14)
[2022-08-02] MEDS: sodium chloride 0.9% 1,000 ML 100 ML IV (06:14)
[2022-08-02 07:37] VITALS: BP 139/77; PULSE 64; RESP 13; O2SAT 95
[2022-08-02] MEDS: gabapentin 100 mg Capsule PO (08:24)
[2022-08-02] MEDS: aspirin 81 mg EC Tablet PO (08:25)
[2022-08-02] MEDS: lisinopril 20 mg Tablet PO (08:25)
[2022-08-02] MEDS: metoprolol tartrate 25 mg Tablet PO (08:26)
[2022-08-02] MEDS: clopidogrel 75 mg Tablet PO (08:26)
[2022-08-02] MEDS: lidocaine 5% Patch 1 PATCH TOPICAL (08:45)
[2022-08-02 10:00] VITALS: PULSE 87; O2SAT 95
--- NOTE | 2022-08-02 10:26 | PM.PN ---
Subjective Subjective: The patient is feeling okay. She had a cardiac catheterization yesterday which revealed a high-grade lesion in the circumflex artery. She underwent PCI of the circumflex artery lesion. Currently she has no chest pain or chest tightness. The vitals are stable. Medications: Medication Review Details: Current Medications Acetaminophen (Acetaminophen 325 Mg Tablet) 650 mg PO Q6H PRN PRN Reason: Mild/Mod Pain Or Temp >/= 101 Last Admin: 07/31/22 22:01 Dose: 650 mg Hydrocodone Bitart/Acetaminophen (Hydrocodone-Acetaminophen 5-325 Mg Tablet) 1 tab PO Q4H PRN PRN Reason: MODERATE PAIN Last Admin: 08/02/22 06:14 Dose: 1 tab Amlodipine Besylate (Amlodipine 10 Mg Tablet) 10 mg PO DAILY [facility] Aspirin (Aspirin 81 Mg Ec Tablet) 81 mg PO DAILY [facility] Last Admin: 08/02/22 08:25 Dose: 81 mg Atorvastatin Calcium (Atorvastatin 40 Mg Tablet) 40 mg PO BEDTIME [facility] Last Admin: 08/01/22 20:22 Dose: 40 mg Clopidogrel Bisulfate (Clopidogrel 75 Mg Tablet) 75 mg PO DAILY [facility] Last Admin: 08/02/22 08:26 Dose: 75 mg Gabapentin (Gabapentin 100 Mg Capsule) 100 mg PO BID [facility] Last Admin: 08/02/22 08:24 Dose: 100 mg Sodium Chloride (Sodium Chloride 0.9%) 1,000 mls @ 100 mls/hr IV .Q10H [facility] Last Admin: 08/02/22 06:14 Dose: 100 mls/hr Lidocaine (Lidocaine 5% Patch) 1 patch TOPICAL [id number] [facility] Last Admin: 08/02/22 08:45 Dose: 1 patch Lisinopril (Lisinopril 20 Mg Tablet) 20 mg PO DAILY [facility] Last Admin: 08/02/22 08:25 Dose: 20 mg Metoprolol Tartrate (Metoprolol Tartrate 25 Mg Tablet) 25 mg PO BID@0900,2100 [facility] Last Admin: 08/02/22 08:26 Dose: 25 mg Nicotine (Nicotine 14 Mg Patch) 1 patch TRANSDERMA DAILY [facility] Last Admin: 08/02/22 08:29 Dose: Not Given Nicotine Polacrilex (Nicotine 4 Mg Lozenge) 4 mg MUCOUS MEM Q2H PRN PRN Reason: NICOTINE CRAVINGS Ondansetron HCl (Ondansetron 2 Mg/Ml Sdv 2 Ml) 4 mg IVP Q8H PRN PRN Reason: vomiting, or N/V if npo Pantoprazole Sodium (Pantoprazole Dr 40 Mg Tablet) 40 mg PO DAILY [facility] Last Admin: 08/02/22 08:29 Dose: Not Given Vitals/I&O/Wt Last Vital Signs Temp 98.3 F 08/02/22 04:00 Pulse 87 08/02/22 10:00 Resp 13 08/02/22 07:37 BP 139/77 08/02/22 07:37 Pulse Ox 95 08/02/22 10:00 O2 Del Method 08/02/22 10:00 O2 Flow Rate 2 08/01/22 10:58 08/01/22 08/02/22 08/02/22 22:59 06:59 14:59 Intake Total 2480 / 2720 1485 / 4205 480 / 480 Balance 2480 / 2720 1485 / 4205 480 / 480 Physical Exam Narrative: GENERAL: The patient is alert and oriented times three. Not in any acute distress. Moderately obese HEENT: No significant pallor, icterus or lymphadenopathy.Oral cavity: There are no mucous membrane lesions. NECK: Trachea appears to be central. No masses noted. No JVD or thyromegaly appreciated. RESPIRATORY: Chest is symmetrical. No intercostals muscle retraction or any accessory muscle activation. There is no chest wall tenderness. Breath sounds are heard bilaterally. No rales or rhonchi heard. No evidence of any consolidation. BREASTS: Deferred. HEART: The heart sounds are normal. No S3 or S4. No significant murmurs. No pericardial rub ABDOMEN: No vessel pulsations or distention. No tenderness. No organomegaly appreciated. Bowel sounds are normally heard. : Deferred. RECTAL: Deferred. LYMPHATIC: No lymphadenopathy noted in the neck. EXTREMITIES: No edema or cyanosis. No clubbing. The radial arterial puncture site has no hematoma bleeding MUSCULOSKELETAL: No acute joint deformities or swelling SKIN: There are no significant rashes or ecchymosis NEUROPSYCHIATRIC: The patient is alert and oriented x3. Appears to be in a good mood. No tremors or rigidity noted. Data : 08/02/22 04:19 08/02/22 04:19 Other Labs: Laboratory Last Values WBC 11.1 10^3/uL (4.0-10.0) H 08/02/22 04:19 RBC 4.66 10^6/uL (4.1-5.3) 08/02/22 04:19 Hgb 14.6 g/dL (11.5-15.3) 08/02/22 04:19 Hct 45.1 % (37.0-47.0) 08/02/22 04:19 MCV 96.8 fl (81-99) 08/02/22 04:19 MCH 31.3 pg (28.0-34.0) 08/02/22 04:19 MCHC 32.4 g/dL (30.0-36.0) 08/02/22 04:19 RDW 12.8 % (12.1-15.1) 08/02/22 04:19 Plt Count 232 10^3/cmm (130-400) 08/02/22 04:19 MPV 10.3 fL (7.4-10.4) 08/02/22 04:19 Neut % (Auto) 66.5 % 08/02/22 04:19 Lymph % (Auto) 22.8 % 08/02/22 04:19 [place] % (Auto) 8.2 % 08/02/22 04:19 Eos % (Auto) 1.9 % 08/02/22 04:19 Baso % (Auto) 0.3 % 08/02/22 04:19 Neut # (Auto) 7.37 10^3/uL (1.8-7.7) 08/02/22 04:19 Lymph # (Auto) 2.5 10^3/uL (0.8-4.8) 08/02/22 04:19 [place] # (Auto) 0.9 10^3/uL (0.2-0.9) 08/02/22 04:19 Eos # (Auto) 0.2 10^3/uL (0.0-0.8) 08/02/22 04:19 Baso # (Auto) 0.0 10^3/uL (0.0-0.1) 08/02/22 04:19 Nucleated RBC % (auto) 0 % 08/02/22 04:19 Nucleated RBCs # 0.0 /100WBC 08/02/22 04:19 APTT 44.1 SECONDS (23.9-36.7) H 07/31/22 07:08 D-Dimer 0.45 ug/mIFEU (0-0.59) 07/31/22 07:08 Sodium 130 mmol/L (136-145) L 08/02/22 04:19 Potassium 3.6 mmol/L (3.5-5.1) 08/02/22 04:19 Chloride 98 mmol/L (98-107) 08/02/22 04:19 Carbon Dioxide 25 mmol/L (22-29) 08/02/22 04:19 Anion Gap 10.6 (5-19) 08/02/22 04:19 BUN 9 mg/dL (6-20) 08/02/22 04:19 Creatinine 0.6 mg/dL (0.5-0.9) 08/02/22 04:19 GFR Calculation 107.6 mL/min (90-130) 08/02/22 04:19 Glucose 86 mg/dL (65-115) 08/02/22 04:19 Calculated Osmolality 268 mOsm/kg (285-295) L 08/02/22 04:19 Calcium 8.6 mg/dL (8.5-10.5) 08/02/22 04:19 Total Bilirubin 0.7 mg/dL (0.15-1.2) 08/02/22 04:19 AST 38 U/L (0-32) H 08/02/22 04:19 ALT 26 U/L (0-33) 08/02/22 04:19 Alkaline Phosphatase 78 U/L (35-105) 08/02/22 04:19 Troponin T Gen 5 ng/L 261 ng/L (0-10) H* 07/31/22 09:30 Total Protein 7.1 g/dL (6.6-8.7) 08/02/22 04:19 Albumin 3.4 g/dL (3.5-5.2) L 08/02/22 04:19 Globulin 3.7 g/dL (1.3-4.6) 08/02/22 04:19 Triglycerides 119 mg/dL (0-150) 08/01/22 04:34 Cholesterol 156 mg/dL (0-200) 08/01/22 04:34 LDL Cholesterol, Calc 94 mg/dL (50-129) 08/01/22 04:34 HDL Cholesterol 38 mg/dL (60-100) L 08/01/22 04:34 LDL/HDL Ratio 2.47 RATIO (0.00-3.22) 08/01/22 04:34 Cholesterol/HDL Ratio 4.11 mg/dL (0.0-4.40) 08/01/22 04:34 A&P Assessment and plan (1) Chest pain: Patient is currently pain-free. May continue on the current medications. (2) Atherosclerotic heart disease of [place] coronary artery without angina pectoris: Patient has severe single-vessel coronary artery disease. Mild diffuse disease in the other vessels. She may continue on the Plavix, aspirin, beta-abdullahi, statin and other current medications. (3) Hypertensive urgency: Currently the blood pressure is under control. May continue on the current medications (4) Nausea and vomiting: Most likely from the myocardial ischemia. Patient has no recurrence. (5) Dyslipidemia: May continue on the current dose of Lipitor. (6) FH: premature coronary heart disease: Details of the other family members are not known. Father had myocardial infarction in his 30s. Plan If the patient continues remain stable, may be discharged home today. Continue on the current medications. [facility]ointment [facility] to be seen by the nurse practitioner next week. Appointment with me in the office in 2 months Avoid any weight lifting with right hand for the next 3 days. Attestations Medical Necessity Statement*: Possible discharge home today. 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
[2022-08-02 10:40] VITALS: BP 143/75; PULSE 80; RESP 16; TEMP 36.9; O2SAT 96
--- NOTE | 2022-08-02 10:58 | P.DS_ITS ---
Discharge Providers Date of Admission: 07/31/22 07:22 Date of Discharge: August 02, 2022 Attending Provider at Admission: Dalton Joyce Attending Provider at Discharge: Melva Orr MD Diagnoses at Discharge Discharge Diagnosis (1) Chest pain: Status: Acute (2) Atherosclerotic heart disease of [place] coronary artery without angina pectoris: Status: Acute (3) Hypertensive urgency: Status: Acute (4) Nausea and vomiting: Status: Acute (5) Dyslipidemia: Status: Acute (6) FH: premature coronary heart disease: Status: Acute Reason for Visit Reason for Visit: NSTEMI Hospital Course Hospital Course 46-year female who was admitted for management and evaluation of non-STEMI. Cardiology was consulted, patient went for coronary angiogram on 08/01, status post stent in circumflex artery. She will be discharged on aspirin, Plavix, lisinopril, amlodipine, Toprol and atorvastatin. Patient is stating that her job is very stressful and was requesting disability paperwork I did nurses' association counselor her to touch base with her PCP. 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 echo wo/w contrast [id number] Routine Ultrasound 07/31/22 07:04 Completed Pending at discharge Category Date Time Status Complete Blood Count w/Auto AM LABS Lab 08/03/22 04:00 Ordered Comprehensive Metabolic Panel AM LABS Lab 08/03/22 04:00 Ordered Laboratory Results WBC 11.1 10^3/uL (4.0-10.0) H 08/02/22 04:19 RBC 4.66 10^6/uL (4.1-5.3) 08/02/22 04:19 Hgb 14.6 g/dL (11.5-15.3) 08/02/22 04:19 Hct 45.1 % (37.0-47.0) 08/02/22 04:19 MCV 96.8 fl (81-99) 08/02/22 04:19 MCH 31.3 pg (28.0-34.0) 08/02/22 04:19 MCHC 32.4 g/dL (30.0-36.0) 08/02/22 04:19 RDW 12.8 % (12.1-15.1) 08/02/22 04:19 Plt Count 232 10^3/cmm (130-400) 08/02/22 04:19 MPV 10.3 fL (7.4-10.4) 08/02/22 04:19 Neut % (Auto) 66.5 % 08/02/22 04:19 Lymph % (Auto) 22.8 % 08/02/22 04:19 [place] % (Auto) 8.2 % 08/02/22 04:19 Eos % (Auto) 1.9 % 08/02/22 04:19 Baso % (Auto) 0.3 % 08/02/22 04:19 Neut # (Auto) 7.37 10^3/uL (1.8-7.7) 08/02/22 04:19 Lymph # (Auto) 2.5 10^3/uL (0.8-4.8) 08/02/22 04:19 [place] # (Auto) 0.9 10^3/uL (0.2-0.9) 08/02/22 04:19 Eos # (Auto) 0.2 10^3/uL (0.0-0.8) 08/02/22 04:19 Baso # (Auto) 0.0 10^3/uL (0.0-0.1) 08/02/22 04:19 Nucleated RBC % (auto) 0 % 08/02/22 04:19 Nucleated RBCs # 0.0 /100WBC 08/02/22 04:19 APTT 44.1 SECONDS (23.9-36.7) H 07/31/22 07:08 D-Dimer 0.45 ug/mIFEU (0-0.59) 07/31/22 07:08 Sodium 130 mmol/L (136-145) L 08/02/22 04:19 Potassium 3.6 mmol/L (3.5-5.1) 08/02/22 04:19 Chloride 98 mmol/L (98-107) 08/02/22 04:19 Carbon Dioxide 25 mmol/L (22-29) 08/02/22 04:19 Anion Gap 10.6 (5-19) 08/02/22 04:19 BUN 9 mg/dL (6-20) 08/02/22 04:19 Creatinine 0.6 mg/dL (0.5-0.9) 08/02/22 04:19 GFR Calculation 107.6 mL/min (90-130) 08/02/22 04:19 Glucose 86 mg/dL (65-115) 08/02/22 04:19 Calculated Osmolality 268 mOsm/kg (285-295) L 08/02/22 04:19 Calcium 8.6 mg/dL (8.5-10.5) 08/02/22 04:19 Total Bilirubin 0.7 mg/dL (0.15-1.2) 08/02/22 04:19 AST 38 U/L (0-32) H 08/02/22 04:19 ALT 26 U/L (0-33) 08/02/22 04:19 Alkaline Phosphatase 78 U/L (35-105) 08/02/22 04:19 Troponin T Gen 5 ng/L 261 ng/L (0-10) H* 07/31/22 09:30 Total Protein 7.1 g/dL (6.6-8.7) 08/02/22 04:19 Albumin 3.4 g/dL (3.5-5.2) L 08/02/22 04:19 Globulin 3.7 g/dL (1.3-4.6) 08/02/22 04:19 Triglycerides 119 mg/dL (0-150) 08/01/22 04:34 Cholesterol 156 mg/dL (0-200) 08/01/22 04:34 LDL Cholesterol, Calc 94 mg/dL (50-129) 08/01/22 04:34 HDL Cholesterol 38 mg/dL (60-100) L 08/01/22 04:34 LDL/HDL Ratio 2.47 RATIO (0.00-3.22) 08/01/22 04:34 Cholesterol/HDL Ratio 4.11 mg/dL (0.0-4.40) 08/01/22 04:34 Vitals Last Vital Signs Temp 98.4 F 08/02/22 10:40 Pulse 80 08/02/22 10:40 Resp 16 08/02/22 10:40 BP 143/75 08/02/22 10:40 Pulse Ox 96 08/02/22 10:40 O2 Del Method 08/02/22 10:00 O2 Flow Rate 2 08/01/22 10:58 Discharge Plan Discharge Patient Disposition: Home Condition: Stable Prescriptions: New amlodipine 10 mg Tablet 10 mg PO DAILY Qty: 60 0RF lisinopril 20 mg Tablet 20 mg PO DAILY Qty: 60 3RF gabapentin 100 mg Capsule 100 mg PO BID Qty: 60 0RF metoprolol succinate [Toprol XL] 25 mg tablet extended release 24 hr 12.5 mg PO DAILY Qty: 60 3RF atorvastatin 40 mg Tablet 40 mg PO BEDTIME Qty: 60 2RF aspirin 81 mg Tablet,Delayed Release (Dr/Ec) 81 mg PO DAILY Qty: 30 3RF clopidogrel 75 mg Tablet 75 mg PO DAILY Qty: 60 3RF Continued Aspir-81 81 mg Tablet,Delayed Release (Dr/Ec) 81 mg PO DAILY Women's Daily Formula 18 mg iron-400 mcg-500 mg Ca Tablet 1 tab PO DAILY Discontinued Advil 200 mg Tablet 400 mg PO Q6H PRN (Reason: Pain) Discharge Orders: Discharge Order (Routine); Ordered 08/02/22 Ordered By: Melva Orr Referrals: Monalisa Abdul MD [Physician] - 2 months (Follow up with Dr. Abdul in 2 months.) Monica Real FNP [Nurse Practitioner] - 7-10 days (Follow up with ELSA Serrato, at [facility]. I have faxed [facility] information to call you on Wednesday to set up an appointment. If you don't hear from them by Wednesday, please call [phone] and ask to be schedule to see Monica within one week. ) Discharge Diet: Cardiac Discharge Activity: Resume usual activity Patient Instructions: Heart Healthy Diet, Coronary Artery Disease (DC), Chest Pain (DC), DASH Eating Plan (GEN), Opioid Safety Activity Restrictions/Additional Instructions: Do not lift over 5 pounds with the right arm/wrist until you see [facility]. Please try Mediterranean diet which is cardioprotective, For your disability please call your PCP for the documentation Discharge Attestations Time Spent in Discharge Care*: less than 30 min Quality Metrics Clinical Quality Measures [ No reported AMI, CVA or VTE this stay] Coding Level of Care Code Acute Chg FW DC note Diagnoses Chest pain R07.9 Atherosclerotic heart disease of [place] coronary artery without angina pectoris I25.10 Hypertensive urgency I16.0 Nausea and vomiting R11.2 Dyslipidemia E78.5 FH: premature coronary heart disease Z82.49
--- NOTE | 2022-08-02 11:43 | PC.NURSE ---
Patient discharged with spouse at 1140am. Ambulated with nurse and spous to main entrance. Patient discharge instructions given on cardiac diet and chest pain. Education given on new medications and on follow up appointments. Patient verbalized understanding of all. Work note given.
--- NOTE | 2022-08-02 12:01 | P.MISC_ITS ---
Miscellaneous Note Note: Ms. Pandey was admitted to the hospital for management of her heart disease.? She went for coronary angiogram and required a stent in one of her coronary arteries.? Considering recent stroke and stent placement in her heart we do recommend she stay away from any kind of physical exertion or emotional stress for now.? We would recommend at least 10 days of rest at home.? 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 Should you have any questions please do not hesitate to call [facility] hospitalist department.
== END 2022-08-02 11:40 | disposition home or self-care (01) | DRG 247 ==
PROVIDERS: Internal Medicine; Internal Medicine Cardiovascular Disease; Admitting Provider Internal Medicine; Visit Provider Internal Medicine
PROC: 027034Z Dilation of Coronary Artery, One Artery with Drug-eluting Intraluminal Device, Percutaneous Approach (ICD-10-PCS; principal; 2022-08-01 08:30)
DX: I21.4 Non-ST elevation (NSTEMI) myocardial infarction (principal); F17.210 Nicotine dependence, cigarettes, uncomplicated; I10 Essential (primary) hypertension; Z86.73 Personal history of transient ischemic attack (TIA), and cerebral infarction without residual deficits; Z82.49 Family history of ischemic heart disease and other diseases of the circulatory system; E66.9 Obesity, unspecified; Z68.37 Body mass index [BMI] 37.0-37.9, adult; I16.0 Hypertensive urgency; E78.5 Hyperlipidemia, unspecified; Z79.82 Long term (current) use of aspirin; Z88.8 Allergy status to other drugs, medicaments and biological substances; Z91.040 Latex allergy status
CPT/HCPCS: 36415; 80048; 80053; 80061; 84484; 85025; 85378; 85730; 93005; 93458; 96360; 96361; 96372; 99152; 99153; C1769; C1874; C1887; C1894; C8929; C9600; J1644; J1650; J2250; J3010; J3490; J7030; Q0163; Q9956; Q9967

== ENCOUNTER → 2022-08-12 16:35 | Outpatient (BNVA) | payer BC, SELFPAY | PROVIDERS: Visit Provider Nurse Practitioner Family | DX: I25.10 Atherosclerotic heart disease of native coronary artery without angina pectoris (principal) | CPT/HCPCS: 36415; 80048 ==